=== PATIENT | male | born 1965 | race Caucasian/White ===

== ENCOUNTER 2020-05-27 06:34 | Outpatient (CLI) | payer OTHER, SELFPAY ==
[2020-05-27 07:41] LABS: Hemoglobin A1C 6.7 % (<5.7)
[2020-05-27 07:47] LABS: Alanine Aminotransferase 66 U/L (4-50); Albumin Level 4.7 g/dL (3.5-5.1); Alkaline Phosphatase 90 U/L (38-126); Aspartate Amino Transferase 43 U/L (17-59); Bilirubin,Total 0.6 mg/dL (0.2-1.3); Blood Urea Nitrogen 21 mg/dL (9-20); Calcium 9.6 mg/dL (8.4-10.2); Carbon Dioxide 29 mmol/L (22-30); Chloride 99 mmol/L (98-107); Cholesterol 182 mg/dL (0-200); Estimated Glomerular Filt Rate > 60; Glucose 132 mg/dL (75-110); HDL Direct 27 mg/dL; Potassium 4.3 mmol/L (3.4-5.0); Sodium 137 mmol/L (137-145); Triglycerides 203 mg/dL (<150)
[2020-05-27 07:58] LABS: LDL Cholesterol Direct 108 mg/dL
[2020-05-27 11:07] LABS: Prostate Specific Antigen 0.4 ng/mL (< OR = 4.0)
== END 2020-05-27 06:35 | disposition home or self-care (01) ==
PROVIDERS: PCP Family Medicine; Visit Provider Physician Assistant
DX: E78.5 Hyperlipidemia, unspecified (principal); I10 Essential (primary) hypertension; E11.9 Type 2 diabetes mellitus without complications; Z12.5 Encounter for screening for malignant neoplasm of prostate
CPT/HCPCS: 36415; 80053; 80061; 83036; 84153; G0103

== ENCOUNTER 2021-02-18 06:43 | Outpatient (CLI) | payer OTHER, SELFPAY ==
[2021-02-18 07:52] LABS: Alanine Aminotransferase 69 U/L (4-50); Albumin Level 4.4 g/dL (3.5-5.1); Alkaline Phosphatase 65 U/L (38-126); Anion Gap 5 mmol/L (8-16); Aspartate Amino Transferase 44 U/L (17-59); Bilirubin,Total 0.3 mg/dL (0.2-1.3); Blood Urea Nitrogen 20 mg/dL (9-20); Calcium 9.5 mg/dL (8.4-10.2); Carbon Dioxide 33 mmol/L (22-30); Chloride 104 mmol/L (98-107); Estimated Glomerular Filt Rate > 60; Glucose 171 mg/dL (75-110); Potassium 4.6 mmol/L (3.4-5.0); Sodium 142 mmol/L (137-145)
[2021-02-18 07:54] LABS: Hemoglobin A1C 6.7 % (<5.7)
== END 2021-02-18 06:44 | disposition home or self-care (01) ==
PROVIDERS: PCP Family Medicine; Visit Provider Physician Assistant
DX: E11.9 Type 2 diabetes mellitus without complications (principal); I10 Essential (primary) hypertension
CPT/HCPCS: 36415; 80053; 83036

== ENCOUNTER 2021-08-22 06:36 | Outpatient (CLI) | payer OTHER, SELFPAY ==
[2021-08-22 07:41] LABS: Alanine Aminotransferase 99 U/L (4-50); Albumin Level 4.6 g/dL (3.5-5.1); Alkaline Phosphatase 70 U/L (38-126); Anion Gap 7 mmol/L (8-16); Aspartate Amino Transferase 48 U/L (17-59); Bilirubin,Total 0.5 mg/dL (0.2-1.3); Blood Urea Nitrogen 16 mg/dL (9-20); Calcium 9.6 mg/dL (8.4-10.2); Carbon Dioxide 32 mmol/L (22-30); Chloride 101 mmol/L (98-107); Cholesterol 184 mg/dL (0-200); Estimated Glomerular Filt Rate > 60; Glucose 210 mg/dL (65-110); HDL Direct 31 mg/dL; Potassium 4.6 mmol/L (3.4-5.0); Sodium 140 mmol/L (137-145); Triglycerides 209 mg/dL (<150)
[2021-08-22 07:52] LABS: LDL Cholesterol Direct 117 mg/dL
[2021-08-22 08:05] LABS: Hemoglobin A1C 7.4 % (<5.7)
[2021-08-22 08:10] LABS: Prostate Specific Antigen 0.5 ng/mL (< OR = 4.0)
== END 2021-08-22 06:37 | disposition home or self-care (01) ==
PROVIDERS: PCP Family Medicine; Visit Provider Physician Assistant
DX: I10 Essential (primary) hypertension (principal); E11.9 Type 2 diabetes mellitus without complications; E78.5 Hyperlipidemia, unspecified; Z12.5 Encounter for screening for malignant neoplasm of prostate
CPT/HCPCS: 36415; 80053; 80061; 83036; 84153; G0103

== ENCOUNTER 2022-02-09 06:35 | Outpatient (CLI) | payer OTHER, SELFPAY ==
[2022-02-09 08:05] LABS: Hemoglobin A1C 7.6 % (<5.7)
[2022-02-09 08:06] LABS: Alanine Aminotransferase 116 U/L (4-50); Albumin Level 4.4 g/dL (3.5-5.1); Alkaline Phosphatase 66 U/L (38-126); Anion Gap 4 mmol/L (8-16); Aspartate Amino Transferase 68 U/L (17-59); Bilirubin,Total 0.6 mg/dL (0.2-1.3); Blood Urea Nitrogen 13 mg/dL (9-20); Calcium 9.3 mg/dL (8.4-10.2); Carbon Dioxide 34 mmol/L (22-30); Chloride 102 mmol/L (98-107); Cholesterol 208 mg/dL (0-200); Estimated Glomerular Filt Rate > 60; Glucose 185 mg/dL (65-110); HDL Direct 34 mg/dL; Potassium 4.3 mmol/L (3.4-5.0); Sodium 140 mmol/L (137-145); Triglycerides 208 mg/dL (<150)
[2022-02-09 08:18] LABS: LDL Cholesterol Direct 128 mg/dL
[2022-02-09 08:20] LABS: Creatinine Urine 68.4 mg/dL
[2022-02-09 08:54] LABS: MALB Creatinine Ratio < 8.8 mg/g (0-30); Microalbumin Urine Random < 6.0 mg/L (0-16.7)
== END 2022-02-09 06:36 | disposition home or self-care (01) ==
PROVIDERS: PCP Family Medicine; Visit Provider Family Medicine
DX: E78.2 Mixed hyperlipidemia (principal); E11.9 Type 2 diabetes mellitus without complications
CPT/HCPCS: 36415; 80053; 80061; 82043; 83036

== ENCOUNTER 2022-06-16 06:33 | Outpatient (CLI) | payer OTHER, SELFPAY ==
[2022-06-16 06:57] LABS: Hemoglobin A1C 7.3 % (<5.7)
[2022-06-16 06:59] LABS: Alanine Aminotransferase 91 U/L (6-50); Albumin Level 4.7 g/dL (3.5-5.1); Alkaline Phosphatase 76 U/L (38-126); Anion Gap 8 mmol/L (8-16); Aspartate Amino Transferase 54 U/L (17-59); Bilirubin,Total 0.9 mg/dL (0.2-1.3); Blood Urea Nitrogen 14 mg/dL (9-20); Calcium 9.4 mg/dL (8.4-10.2); Carbon Dioxide 34 mmol/L (22-30); Chloride 98 mmol/L (98-107); Cholesterol 158 mg/dL (0-200); Estimated Glomerular Filt Rate > 60; Glucose 185 mg/dL (65-110); HDL Direct 31 mg/dL; Potassium 4.6 mmol/L (3.4-5.0); Sodium 140 mmol/L (137-145); Triglycerides 209 mg/dL (<150)
[2022-06-16 07:12] LABS: LDL Cholesterol Direct 79 mg/dL
== END 2022-06-16 06:34 | disposition home or self-care (01) ==
LOC: ANHLAB 06:35
PROVIDERS: PCP Family Medicine; Visit Provider Family Medicine
DX: E78.2 Mixed hyperlipidemia (principal); E11.9 Type 2 diabetes mellitus without complications
CPT/HCPCS: 36415; 80053; 80061; 83036

== ENCOUNTER 2022-12-01 06:32 | Outpatient (CLI) | payer OTHER, SELFPAY ==
[2022-12-01 07:47] LABS: Alanine Aminotransferase 69 U/L (6-50); Albumin Level 4.4 g/dL (3.5-5.1); Alkaline Phosphatase 102 U/L (38-126); Anion Gap 7 mmol/L (8-16); Aspartate Amino Transferase 47 U/L (17-59); Bilirubin,Total 0.7 mg/dL (0.2-1.3); Blood Urea Nitrogen 19 mg/dL (9-20); Calcium 9.4 mg/dL (8.4-10.2); Carbon Dioxide 32 mmol/L (22-30); Chloride 104 mmol/L (98-107); Cholesterol 121 mg/dL (0-200); Estimated Glomerular Filt Rate > 60; Glucose 133 mg/dL (65-110); HDL Direct 32 mg/dL; Potassium 4.4 mmol/L (3.4-5.0); Sodium 143 mmol/L (137-145); Triglycerides 85 mg/dL (<150)
[2022-12-01 07:57] LABS: LDL Cholesterol Direct 58 mg/dL
[2022-12-01 08:16] LABS: Prostate Specific Antigen 0.6 ng/mL (< OR = 4.0)
[2022-12-01 09:49] LABS: Hemoglobin A1C 5.7 % (<5.7)
== END 2022-12-01 06:33 | disposition home or self-care (01) ==
LOC: ANHLAB 06:34
PROVIDERS: PCP Family Medicine; Visit Provider Physician Assistant
DX: E11.9 Type 2 diabetes mellitus without complications (principal); Z13.1 Encounter for screening for diabetes mellitus; Z13.220 Encounter for screening for lipoid disorders; Z12.5 Encounter for screening for malignant neoplasm of prostate
CPT/HCPCS: 36415; 80053; 80061; 83036; 84153; G0103

== ENCOUNTER 2023-05-16 06:38 | Outpatient (CLI) | payer OTHER, SELFPAY ==
[2023-05-16 07:24] LABS: Alanine Aminotransferase 50 U/L (6-50); Albumin Level 4.3 g/dL (3.5-5.1); Alkaline Phosphatase 80 U/L (38-126); Anion Gap 2 mmol/L (8-16); Aspartate Amino Transferase 37 U/L (17-59); Bilirubin,Total 0.6 mg/dL (0.2-1.3); Blood Urea Nitrogen 18 mg/dL (9-20); Calcium 9.1 mg/dL (8.4-10.2); Carbon Dioxide 36 mmol/L (22-30); Chloride 102 mmol/L (98-107); Cholesterol 128 mg/dL (0-200); Estimated Glomerular Filt Rate > 60; Glucose 130 mg/dL (65-110); HDL Direct 35 mg/dL; Potassium 4.1 mmol/L (3.4-5.0); Sodium 140 mmol/L (137-145); Triglycerides 102 mg/dL (<150)
[2023-05-16 07:35] LABS: LDL Cholesterol Direct 70 mg/dL
[2023-05-16 07:38] LABS: Hemoglobin A1C 5.9 % (<5.7)
[2023-05-16 07:49] LABS: Creatinine Urine 54.9 mg/dL
[2023-05-16 08:25] LABS: MALB Creatinine Ratio < 10.9 mg/g (0-30); Microalbumin Urine Random < 6.0 mg/L (0-16.7)
== END 2023-05-16 06:39 | disposition home or self-care (01) ==
LOC: ANHLAB 06:42
PROVIDERS: PCP Family Medicine; Visit Provider Family Medicine
DX: E11.9 Type 2 diabetes mellitus without complications (principal); R74.8 Abnormal levels of other serum enzymes; E78.2 Mixed hyperlipidemia
CPT/HCPCS: 36415; 80048; 80061; 80076; 82043; 83036

== ENCOUNTER 2023-12-05 06:39 | Outpatient (CLI) | payer OTHER, SELFPAY ==
[2023-12-05 07:10] LABS: Alanine Aminotransferase 64 U/L (6-50); Albumin Level 4.4 g/dL (3.5-5.1); Alkaline Phosphatase 78 U/L (38-126); Anion Gap 9 mmol/L (8-16); Aspartate Amino Transferase 40 U/L (17-59); Bilirubin,Total 0.8 mg/dL (0.2-1.3); Blood Urea Nitrogen 19 mg/dL (9-20); Calcium 9.7 mg/dL (8.4-10.2); Carbon Dioxide 32 mmol/L (22-30); Chloride 100 mmol/L (98-107); Cholesterol 145 mg/dL (0-200); Estimated Glomerular Filt Rate > 60; Glucose 166 mg/dL (65-110); HDL Direct 32 mg/dL; Potassium 4.5 mmol/L (3.4-5.0); Sodium 141 mmol/L (137-145); Triglycerides 166 mg/dL (<150)
[2023-12-05 07:21] LABS: LDL Cholesterol Direct 78 mg/dL
[2023-12-05 07:40] LABS: Prostate Specific Antigen 0.5 ng/mL (< OR = 4.0)
[2023-12-05 07:45] LABS: Hemoglobin A1C 6.7 % (<5.7)
== END 2023-12-05 06:40 | disposition home or self-care (01) ==
LOC: ANHLAB 06:41
PROVIDERS: PCP Family Medicine; Visit Provider Physician Assistant
DX: Z13.1 Encounter for screening for diabetes mellitus (principal); E11.9 Type 2 diabetes mellitus without complications; Z13.220 Encounter for screening for lipoid disorders; Z12.5 Encounter for screening for malignant neoplasm of prostate
CPT/HCPCS: 36415; 80053; 80061; 83036; 84153; G0103

== ENCOUNTER 2024-07-14 06:36 | Outpatient (CLI) | payer OTHER, SELFPAY ==
[2024-07-14 07:38] LABS: Alanine Aminotransferase 64 U/L (6-50); Albumin Level 4.2 g/dL (3.5-5.1); Alkaline Phosphatase 68 U/L (38-126); Anion Gap 9 mmol/L (4-12); Aspartate Amino Transferase 40 U/L (17-59); Bilirubin,Total 0.6 mg/dL (0.2-1.3); Blood Urea Nitrogen 16 mg/dL (9-20); Calcium 9.4 mg/dL (8.4-10.2); Carbon Dioxide 31 mmol/L (22-30); Chloride 100 mmol/L (98-107); Cholesterol 125 mg/dL (0-200); Estimated Glomerular Filt Rate > 60; Glucose 162 mg/dL (65-110); HDL Direct 36 mg/dL; Potassium 4.5 mmol/L (3.4-5.0); Sodium 140 mmol/L (137-145); Triglycerides 117 mg/dL (<150)
[2024-07-14 07:49] LABS: LDL Cholesterol Direct 68 mg/dL
[2024-07-14 10:08] LABS: Creatinine Urine 50.3 mg/dL
[2024-07-14 10:23] LABS: MALB Creatinine Ratio < 11.9 mg/g (0-30); Microalbumin Urine Random < 6.0 mg/L (0-16.7)
[2024-07-14 10:58] LABS: Hemoglobin A1C 6.7 % (<5.7)
== END 2024-07-14 06:37 | disposition home or self-care (01) ==
LOC: ANHLAB 06:37
PROVIDERS: PCP Family Medicine; Visit Provider Physician Assistant Medical
DX: R74.8 Abnormal levels of other serum enzymes (principal); M10.9 Gout, unspecified; E11.69 Type 2 diabetes mellitus with other specified complication; E78.2 Mixed hyperlipidemia
CPT/HCPCS: 36415; 80053; 80061; 82043; 83036

== ENCOUNTER 2025-01-09 06:51 | Outpatient (CLI) | payer OTHER, SELFPAY ==
--- OUTSIDE RECORDS SUMMARY | 2025-01-09 06:55 | XMS_ITS | Referral Summary ---
Author Organization [facility] [place] [address] Address [address] [place] [address] Care Team Providers Care Interpretative Dancer Name Role Phone Alexandria Schaffer MD Primary Care Provider [phone] Allergies No known active allergies Medications valACYclovir (VALTREX) 1 gram tablet Take 1,000 mg by mouth 3 (three) times a day 09/06/[address] (PROTONIX) 40 mg EC tablet 10/23/2020 Active metFORMIN (GLUCOPHAGE) 500 mg tablet 10/23/2020 Activ e gabapentin (NEURONTIN) 300 mg capsule TAKE ONE CAPSULE BY MOUTH TWO TIMES A DAY NEEDED FOR PAIN 09/06/2020 Active clotrimazole-be tamethasone (LOTRISONE) cream APPLY TO AFFECTED AREA TWICE A DAY 08/26/2020 Active aspirin 81 mg enteric coated tablet 10/23/2020 Active fluconazole (DIFLUCAN) 150 mg tablet 04/15/2021 Active lisinopriL (PRINIVIL,ZESTR IL) 2.5 mg tablet Take 2.5 mg by mouth daily 02/23/2021 Active naproxen (NAPROSYN) 500 mg tablet TAKE 1 TABLET BY MOUTH TWICE A DAY NEEDED FOR PAIN 03/21/2021 Active Active Problems Problem Noted Date Diagnosed Date Knee pain 10/27/2014 Social History Tobacco Use Types Packs/Day Years Used Date Smoking Tobacco: Former Personal Safety Answer Date Recorded Getting School Help Needed Not on file 11/20 Sex and Gender Information Value Date Recorded Sex Assigned at Not on file 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 Gender Identity Not on file Sexual Orientation Not on file Last Filed Vital Signs Vital Sign Reading Time Taken Comments Blood Pressure - - Pulse - - Temperature - - Respiratory Rate - - Oxygen Saturation - - Inhaled Oxygen Concentration - - Weight 124.7 kg (275 lb) 10/29/2020 10:50 AM WHEEL LOADER OPERATOR Height 193 cm (6' 4 ) 10/29/2020 10:50 AM WHEEL LOADER OPERATOR Body Mass Index 33.47 10/29/2020 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
--- OUTSIDE RECORDS SUMMARY | 2025-01-09 06:55 | XMS_ITS | Clinical Summary ---
Author Organization [facility] [place] [address] Address [address] [place] [address] Care Team Providers Care Employee Development Director Name Role Phone Alexandria Schaffer MD Primary Care Provider [phone] Allergies No known active allergies Medications valACYclovir [...] Noted Date Diagnosed Date Knee pain 10/27/2014 Medical History Medical History Date Comments Diabetes mellitus (HCC) Gastric reflux Gout Family History Medical History Relation Name Comments Hypertension Brother 1 Family history of hypertension - (Added by TW Conv) Kidney disease Brother 2 Family histor y of kidney disease - (Added by TW Conv) Arthritis Father Family history of arthritis - (Added by TW Conv) Blood Clot Father Family history of blood clots - (Added by TW Conv) Heart disease Father Family history of cardiac disorder - (Added by TW Conv) Hypertension Father Family history of hypertension - (Added by TW Conv) Kidney disease Father Family histor y of kidney disease - (Added by TW Conv) Arthritis Mother Family history of arthritis - (Added by TW Conv) Blood Clot Mother Family history of blood clots - (Added by TW Conv) Hypertension Mother Family history of hypertension - (Added by TW Conv) Kidney disease Mother Family histor y of kidney disease - (Added by TW Conv) Kidney disease Sister Family histor y of kidney disease - (Added by TW Conv) Relation Name Status Comments Brother 1 Brother 2 Father Mother Sister Social History Tobacco Use Types Packs/Day Years Used Date Smoking Tobacco: Former Personal Safety Answer Date Recorded Getting School Help Needed Not on file 11/20 Sex and Gender Information Value Date Recorded Sex Assigned at Not on file 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 Gender Identity Not on file Sexual Orientation Not on file Obstetrics History Last Filed Vital Signs Vital Sign Reading Time Taken Comments Blood Pressure - - Pulse - - Temperature - - Respiratory Rate - - Oxygen Saturation - - Inhaled Oxygen Concentration - - Weight 124.7 kg (275 lb) 10/29/2020 10:50 AM NIB INSPECTOR Height 193 cm (6' 4 ) 10/29/2020 10:50 AM NIB INSPECTOR Body Mass Index 33.47 10/29/2020 10:50 AM NIB INSPECTOR Plan of Treatment Not on file Insurance [employer] [facility] [employer] [place] [address] [place] [id number] [employer] [facility] [place] [address] [place] [phone] Care Teams Employee Development Director Relationship Specialty Start Date End Date Alxeandria Schaffer MD PCP - General Family Medicine 09/30/20
[2025-01-09 08:00] LABS: Alanine Aminotransferase 58 U/L (6-50); Albumin Level 4.4 g/dL (3.5-5.1); Alkaline Phosphatase 76 U/L (38-126); Anion Gap 9 mmol/L (4-12); Aspartate Amino Transferase 38 U/L (17-59); Bilirubin,Total 0.7 mg/dL (0.2-1.3); Blood Urea Nitrogen 18 mg/dL (9-20); Calcium 9.4 mg/dL (8.4-10.2); Carbon Dioxide 30 mmol/L (22-30); Chloride 103 mmol/L (98-107); Cholesterol 121 mg/dL (0-200); Estimated Glomerular Filt Rate > 60; Glucose 147 mg/dL (65-110); HDL Direct 31 mg/dL; Potassium 4.8 mmol/L (3.4-5.0); Sodium 142 mmol/L (137-145); Triglycerides 132 mg/dL (<150)
[2025-01-09 08:11] LABS: LDL Cholesterol Direct 68 mg/dL
[2025-01-09 08:29] LABS: Hemoglobin A1C 6.7 % (<5.7)
[2025-01-09 08:30] LABS: Prostate Specific Antigen 0.5 ng/mL (< OR = 4.0)
== END 2025-01-09 06:52 | disposition home or self-care (01) ==
PROVIDERS: PCP Family Medicine; Visit Provider Student in an Organized Health Care Education/Training Program
DX: E11.69 Type 2 diabetes mellitus with other specified complication (principal); E78.5 Hyperlipidemia, unspecified; E11.9 Type 2 diabetes mellitus without complications; R74.8 Abnormal levels of other serum enzymes; Z12.5 Encounter for screening for malignant neoplasm of prostate
CPT/HCPCS: 36415; 80053; 80061; 83036; 84153; G0103

== ENCOUNTER 2025-06-26 06:39 | Outpatient (CLI) | payer OTHER, SELFPAY ==
--- OUTSIDE RECORDS SUMMARY | 2025-06-26 06:43 | XMS_ITS | Clinical Summary ---
Author Organization [facility] [place] [address] [place] [address] [address] [place] [address] Care Team Providers Care Joy Loader Name Role Phone Alexandria Schaffer MD Primary Care Provider Allergies No known active allergies Medications valACYclovir [...] Noted Date Diagnosed Date Knee pain 10/27/2014 Encounters Date Type Department Care Team Description 06/01/2025 Telephone [facility] Card[facility] [address] [place] [address] Katy Huber from Last 3 Months Medical History Medical History Date Comments Diabetes [...] on file 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 Gender Identity Not on file Sexual Orientation Not on file Obstetrics History Last Filed Vital Signs Vital Sign Reading Time Taken Comments Blood Pressure - - Pulse - - Temperature - - Respiratory Rate - - Oxygen Saturation - - Inhaled Oxygen Concentration - - Weight 124.7 kg (275 lb) 10/29/2020 10:50 AM CUT OUT PRESS OPERATOR Height 193 cm (6' 4) 10/29/2020 10:50 AM CUT OUT PRESS OPERATOR Body Mass Index 33.47 10/29/2020 10:50 AM CUT OUT PRESS OPERATOR Plan of Treatment Health Maintenance Due Date Last Done Comments Colon Cancer Screening-Colonoscopy 1966 Depression Screening 1966 Hepatitis C Screening 1966 Prostate Cancer Screening-PSA 1966 DTaP/Tdap/Td Vaccine (1 - Tdap) 1977 Hepatitis B Screening 1984 Regular Well Visit/Exam 18-64 1984 Zoster Vaccine (1 of 2) 2016 Covid-19 Vaccine (3 - 2023-2 5 season) 2024 09/05/2021, 08/15/2021 Influenza Vaccine (#1) 2025 08/08/2019 Pneumococcal vaccine <65 Aged Out No longer eligible based on patient's age to complete this topic Insurance [facility] [id number] [facility] [id number] [facility] [id number] Care Teams Joy Loader Relationship Specialty Start Date End Date Alexandria Schaffer MD PCP - General Family Medicine 09/30/20
[2025-06-26 08:02] LABS: Hematocrit 41.9 % (42.0-52.0); Hemoglobin 14.1 g/dL (14.0-18.0); Immature Granulocyte Percent A 0.8 % (0-0.5); Lymphocytes Absolute Auto 1.40 K/mm3 (0.9-3.2); Mean Corpuscular HGB Conc 33.7 g/dl (32-36); Mean Corpuscular Hemoglobin 31.1 pg (26-34); Mean Corpuscular Volume 92.3 fl (80-100); Nucleated Red Blood Cells Absolute Auto 0.000 K/mm3 (0.0-0.012); Nucleated Red Blood Cells Perc 0.0 % (0.0-0.2); Platelet Count Result 167 k/mm3 (150-375); Red Blood Count 4.54 M/mm3 (4.6-6.20); White Blood Count 6.3 K/mm3 (4.5-10.0)
[2025-06-26 08:29] LABS: Alanine Aminotransferase 72 U/L (6-50); Albumin Level 4.5 g/dL (3.5-5.1); Alkaline Phosphatase 75 U/L (38-126); Anion Gap 9 mmol/L (4-12); Aspartate Amino Transferase 44 U/L (17-59); Bilirubin,Total 0.8 mg/dL (0.2-1.3); Blood Urea Nitrogen 18 mg/dL (9-20); Calcium 9.5 mg/dL (8.4-10.2); Carbon Dioxide 29 mmol/L (22-30); Chloride 101 mmol/L (98-107); Cholesterol 142 mg/dL (0-200); Estimated Glomerular Filt Rate > 60; Glucose 170 mg/dL (65-110); HDL Direct 31 mg/dL; Potassium 4.5 mmol/L (3.4-5.0); Sodium 139 mmol/L (137-145); Total Protein 7.6 g/dL (6.3-8.2); Triglycerides 215 mg/dL (<150)
[2025-06-26 12:53] LABS: Hemoglobin A1C 7.1 % (<5.7)
[2025-06-26 13:07] LABS: Hepatitis B Surface Antigen Negative (Negative)
[2025-06-26 13:13] LABS: HAV RESULT Negative (Negative); Hepatitis B Core IgM Result Negative (Negative)
[2025-06-26 15:50] LABS: MALB Creatinine Ratio < 7.8 mg/g (0-30)
== END 2025-06-26 06:40 | disposition home or self-care (01) ==
PROVIDERS: PCP Family Medicine; Visit Provider Family Medicine
DX: E11.9 Type 2 diabetes mellitus without complications (principal); R74.8 Abnormal levels of other serum enzymes; R53.83 Other fatigue; E78.2 Mixed hyperlipidemia
CPT/HCPCS: 36415; 80048; 80061; 80074; 80076; 82043; 83036; 85025

== ENCOUNTER 2025-07-07 09:16 | Outpatient (CLI) | payer OTHER, SELFPAY ==
--- NOTE | ~2025-07-07 | US_ITS ---
Limited Abdominal Sonogram: Real-time sonographic imaging of the right upper quadrant was performed. Clinical History: Abnormal serum enzyme levels Findings: The liver appears echogenic, with no evidence of mass lesion or bile duct dilatation. Main portal vein demonstrates normal direction of flow. The gallbladder is well distended, and demonstrated small gallstone versus calcified polyp. The common bile duct measures 3 mm. The visualized pancreas, aorta, and IVC are unremarkable. Impression: Diffuse fatty infiltration of the liver. Small gallstone versus calcified polyp. Reviewed, dictated and finalized at location M. Impression: Diffuse fatty infiltration of the liver. Small gallstone versus calcified polyp.
== END 2025-07-07 09:17 | disposition home or self-care (01) ==
LOC: MICIMG 09:17
PROVIDERS: PCP Family Medicine; Visit Provider Student in an Organized Health Care Education/Training Program
DX: R74.8 Abnormal levels of other serum enzymes (principal); K76.0 Fatty (change of) liver, not elsewhere classified
CPT/HCPCS: 76705